=== PATIENT | female | born 1945 | race Caucasian/White ===

== ENCOUNTER 2017-03-15 00:29 | Observation (INO) | payer OTHER, MEDICAID ==
[~2017-03-15 00:29] MED LIST: ACETAMINOPHEN 325 MG TAB PO PRN; ATOR40TA16 PO; BISACODYL 10 MG SUPP RECTAL PRN; BUSP15TA PO; DICY20TA10 PO; FOSA70TA PO; HYDR-3580 PO; JANU50TA8 PO; LACTULOSE SYRUP 20 GM/30 ML CUP PO PRN; LEXA20TA PO; LISI-519 PO; MAGNESIUM HYDROXIDE SUSP 30 ML CUP PO PRN; NALOXONE HCL 0.4 MG/ML AMP IV PUSH PRN; OMEP40CA2 PO; ONDANSETRON HCL 4 MG/2 ML VIAL IVP PRN; SENNOSIDES 8.6 MG TAB PO PRN; SODIUM CHLORIDE 0.9% FLUSH 10 ML FLUSH IV FLUSH PRN; TRAZ300T2 PO; ZYPR10TA PO
[2017-03-15] MEDS: HEPARIN SODIUM - SQ 10,000 UNITS/ML VIAL SQ SCH ×2 (01:20→11:56)
[2017-03-15] MEDS: SODIUM CHLOR 0.9% 1000 ML INJ 1,000 ML IV SCH ×2 (01:22→13:48)
[2017-03-15] MEDS ORDERED: GLUCAGON 1 MG/ML VIAL OTHER PRN (01:45)
[2017-03-15] MEDS ORDERED: DEXTROSE 50% IN WATER 50 ML VIAL(D50) IV PUSH PRN (01:45)
[2017-03-15 02:38] VITALS: BP 128/68; PULSE 68; RESP 18; TEMP 98; O2SAT 98
[2017-03-15] MEDS ORDERED: DICYCLOMINE HCL 20 MG TAB PO PRN ×2 (04:00→04:15)
[2017-03-15] MEDS ORDERED: NICOTINE 4 MG/GUM CHEW PRN (04:30)
--- NOTE | 2017-03-15 04:36 | HHI.HP ---
[facility] Service [facility] Hospital[facility] Primary Care Physician Non-Staff Admission Diagnosis Diagnoses: (1) Abdominal wall hernia at previous stoma site Diagnosis: Principal Chief Complaint: Left lower quadrant abdominal pain with foul-smelling stool. Travel History International Travel<30 Days: No Contact w/Intl Traveler <30 Da: No Traveled to Known Affected Are: No History of Present Illness Ms. Copeland is 71 years old, with history inclusive of diverticulitis requiring colostomy, abdominal hernia, diabetes and high blood pressure. Ms. Copeland reported that she had diverticulitis 6 years ago requiring bowel resection surgery with subsequent colostomy. She reported having a abdominal hernia that is unable to be operated on until "they reversed my colostomy". Patient reported that she was been having abdominal pain off and on for several weeks. This morning, she awoke with "the worst pain I have had". She stated she tried to endure the pain (described as a deep ache and sharp) as best as she could and could not get relief. She also reported her stool started smelling "foul" and was more loose than usual. She denied recent use of antibiotics. As she was feeling worse she went to [facility] in [place] for evaluation and management of her condition. Imaging of the abdomen indicated the presence of left lower quadrant herniation of small bowel through ostomy defect in abdominal wall with some associated edema or inflammation changes and overlying skin thickening. Negative for small bowel obstruction or free air. She was subsequently transported to [facility] for management of her condition. At time of interview, she reported continued abdominal pain, foul-smelling loose stool, and decreased appetite. She denied fever, body aches, chest pain, shortness of breath, difficulty ambulating, nausea, and vomiting. Review of Systems Constitutional: COMPLAINS OF: Change in appetite, DENIES: Fever, Weight loss Endocrine: DENIES: Polydipsia, Polyphagia Eyes: DENIES: Blurred vision, Diplopia Ears, nose, mouth, throat: COMPLAINS OF: Hearing loss (over the past few years. ), DENIES: Vertigo, Throat pain Respiratory: COMPLAINS OF: Shortness of breath (reported to be in frequent and related to her COPD.), DENIES: Cough, Wheezing Cardiovascular: DENIES: Chest pain, Palpitations, Dyspnea on Exertion Gastrointestinal: COMPLAINS OF: Abdominal pain, Diarrhea (1 day onset and foul- smelling.), DENIES: Constipation, Vomiting Genitourinary: DENIES: Hematuria, Dysuria Psychiatric: COMPLAINS OF: Depression (controlled with medication.), DENIES: Anxiety Except as stated in HPI: all other systems reviewed are Neg Past Family Social History Past Medical History Arthritis Anxiety Depression Coronary artery disease/CABG/hypertension Chronic obstructive pulmonary disease Hyperlipidemia Diabetes (on Glucophage) Diverticulitis GERD Past Surgical History Bowel resection with colostomy Cholecystectomy CABG (2) Right breast lumpectomy Reported Medications Reported Meds & Active Scripts Active Reported Hydrocodone-Acetaminophen 7.5-325 mg Tab 1 Tab PO Q6H PRN Fosamax (Alendronate Sodium) 70 Mg Tab 70 Mg PO Q7D Dicyclomine (Dicyclomine HCl) 20 Mg Tab 325 Mg PO DAILY PRN Lisinopril 5 Mg Tab 5 Mg PO DAILY Zyprexa (Olanzapine) 10 Mg Tab 10 Mg PO DAILY Atorvastatin (Atorvastatin Calcium) 40 Mg Tab 40 Mg PO HS Trazodone (Trazodone HCl) 300 Mg Tab 300 Mg PO HS Omeprazole 40 Mg Cap 40 Mg PO DAILY Lexapro (Escitalopram Oxalate) 20 Mg Tab 30 Mg PO DAILY Buspirone (Buspirone HCl) 15 Mg Tab 15 Mg PO DAILY Janumet (Sitagliptin-Metformin) 50-1,000 Mg Tab 1 Tab PO BID Allergies: Coded Allergies: quetiapine (Verified Allergy, Severe, Hallucinations, 01/14/17) penicillin G (Verified Allergy, Unknown, Rash, 01/14/17) venlafaxine (Verified Allergy, Unknown, Irritability/Anxiety, 01/14/17) Active Ordered Medications Current Medications Medications (Trade) Dose Ordered Sig/Porfirio Route Start Time Stop Time Status Last Admin Sodium Chloride 1,000 ml @ 75 mls/hr [id number] IV 03/14/17 22:32 03/15/17 01:22 (NS Flush) 2 ml UNSCH PRN IV FLUSH 03/14/17 22:45 (NS Flush) 2 ml BID IV FLUSH 03/15/17 09:00 (Tylenol) 650 mg Q4H PRN PO 03/14/17 22:45 (Zofran Inj) 4 mg Q4H PRN IVP 03/14/17 22:45 (Heparin Inj) 5,000 units Q12H SQ 03/15/17 00:00 03/15/17 01:20 (Narcan Inj) 0.4 mg UNSCH PRN IV PUSH 03/14/17 22:45 (Jania-Colace) 1 tab BID PO 03/15/17 09:00 (Milk Of Magnesia Liq) 30 ml Q12H PRN PO 03/14/17 22:45 (Senokot) 17.2 mg Q12H PRN PO 03/14/17 22:45 (Dulcolax Supp) 10 mg DAILY PRN RECTAL 03/14/17 22:45 (Lactulose Liq) 30 ml DAILY PRN PO 03/14/17 22:45 (D50w (Vial) Inj) 50 ml UNSCH PRN IV PUSH 03/15/17 01:45 (Glucagon Inj) 1 mg UNSCH PRN OTHER 03/15/17 01:45 (NovoLOG SUPPLEMENTAL SCALE) 1 ACHS SLIDING SCALE SQ 03/15/17 08:00 (Flagyl) 500 mg Q8HR PO 03/15/17 06:00 Levofloxacin/ Dextrose 100 ml @ 100 mls/hr Q24H IV 03/15/17 21:00 (Lipitor) 40 mg HS PO 03/15/17 21:00 (Buspar) 15 mg DAILY PO 03/15/17 09:00 (Bentyl) 325 mg DAILY PRN PO 03/15/17 04:00 UNV (Lexapro) 30 mg DAILY PO 03/15/17 09:00 (Prinivil) 5 mg DAILY PO 03/15/17 09:00 (ZyPREXA) 10 mg DAILY PO 03/15/17 09:00 (Desyrel) 300 mg HS PO 03/15/17 21:00 (Protonix) 40 mg DAILY PO 03/15/17 09:00 (Glucophage) 1,000 mg BID PO 03/15/17 09:00 Family History Family history not reported/disclose by patient at visit. Social History Patient denied use of alcohol or illicit/recreational drugs. Patient reported smoking 1.5 packs of cigarettes per day; length of use was not disclosed. Physical Exam Vital Signs Vital Signs Date Time Temp Pulse Resp B/P (MAP) Pulse Ox O2 Delivery O2 Flow Rate FiO2 03/15/17 02:38 98.0 68 18 128/68 (88) 98 Physical Exam GENERAL: This is a well-nourished, well-developed female,, laying in bed, in no apparent distress. SKIN: No rashes, ecchymoses or lesions. Cool and dry. HEAD: Atraumatic. Normocephalic. EYES: Pupils equal round and reactive. Extraocular motions intact. No scleral icterus. No injection or drainage. ENT: Nose without bleeding or purulent drainage. Airway patent. NECK: Trachea midline. No lymphadenopathy. Supple and nontender. CARDIOVASCULAR: Regular rate and rhythm without murmurs, gallops, or rubs. RESPIRATORY: Clear to auscultation. Breath sounds equal bilaterally. No rales, or rhonchi. Diffuse wheezing noted. GASTROINTESTINAL: Abdomen soft, non-tender, nondistended. No hepato- splenomegaly or guarding. Colostomy noted in left lower quadrant; stoma pink, no stool noted. MUSCULOSKELETAL: Extremities without clubbing, cyanosis, or edema. NEUROLOGICAL: Awake and alert. Cranial nerves II through XII intact. Motor and sensory grossly within normal limits. Five out of 5 muscle strength in all muscle groups. Speech was clear and fluent. Laboratory Laboratory Tests Test 03/14/17 19:25 03/14/17 19:44 03/14/17 19:45 White Blood Count 11.0 TH/MM3 Red Blood Count 3.68 MIL/MM3 Hemoglobin 11.3 GM/DL Hematocrit 34.2 % Mean Corpuscular Volume 92.9 FL Mean Corpuscular Hemoglobin 30.7 PG Mean Corpuscular Hemoglobin Concent 33.0 % Red Cell Distribution Width 12.9 % Platelet Count 203 TH/MM3 Mean Platelet Volume 10.8 FL Immature Granulocyte % (Auto) 0.3 % Neutrophils (%) (Auto) 67.2 % Lymphocytes (%) (Auto) 26.3 % Monocytes (%) (Auto) 4.4 % Eosinophils (%) (Auto) 1.4 % Basophils (%) (Auto) 0.4 % Immature Granulocyte # (Auto) 0.0 TH/MM3 Neutrophils # (Auto) 7.4 TH/MM3 Lymphocytes # (Auto) 2.9 TH/MM3 Monocytes # (Auto) 0.5 TH/MM3 Eosinophils # (Auto) 0.2 TH/MM3 Basophils # (Auto) 0.0 TH/MM3 CBC Comment DIFF FINAL Differential Comment Lactic Acid Level 2.1 mmol/L Urine Color YELLOW Urine Turbidity CLEAR Urine pH 5.5 Urine Specific [place] LESS/EQUAL 1.005 Urine Protein NEG mg/dL Urine Glucose (UA) NEG mg/dL Urine Ketones NEG mg/dL Urine Occult Blood TRACE Urine Nitrite NEG Urine Bilirubin NEG Urine Urobilinogen 0.2 MG/DL Urine Leukocyte Esterase TRACE Urine RBC 0-3 /hpf Urine WBC 3-5 /hpf Urine Squamous Epithelial Cells 0-5 /hpf Urine Bacteria MOD /hpf Urine Mucus RARE /lpf Microscopic Urinalysis Comment CULTURE INDICATED Blood Urea Nitrogen 14 MG/DL Creatinine 1.00 MG/DL Random Glucose 115 MG/DL Total Protein 6.1 GM/DL Albumin 3.0 GM/DL Calcium Level 8.7 MG/DL Alkaline Phosphatase 103 U/L Aspartate Amino Transf (AST/SGOT) 20 U/L Alanine Aminotransferase (ALT/SGPT) 33 U/L Total Bilirubin 0.2 MG/DL Sodium Level 140 MEQ/L Potassium Level 4.2 MEQ/L Chloride Level 109 MEQ/L Carbon Dioxide Level 22.0 MEQ/L Anion Gap 9 MEQ/L Estimat Glomerular Filtration Rate 55 ML/MIN Lipase 196 U/L Imaging FINDINGS: There is a left lower quadrant herniation of small bowel through an ostomy defect in the lower anterior abdominal wall. There is no associated obstruction. There is some edema or inflammatory change around the herniated bowel loops. There is overlying skin thickening. Lung bases are clear. No acute findings in the liver, spleen, adrenals, kidneys or pancreas. Prior cholecystectomy. No free fluid or free air. CONCLUSION: 1. Left lower quadrant herniation of small bowel through an ostomy defect in the abdominal wall with some associated edema or inflammatory changes and overlying skin thickening. No bowel obstruction or free air. Caprini VTE Risk Assessment Caprini VTE Risk Assessment: Mod/High Risk (score >= 2) Caprini Risk Assessment Model Point Value = 1 Point Value = 2 Point Value = 3 Point Value = 5 Age 41-60 Minor surgery BMI > 25 kg/m2 Swollen legs Varicose veins or History of unexplained or recurrent spontaneous Oral contraceptives or hormone replacement Sepsis (< 1 month) Serious lung disease, including pneumonia (< 1 month) Abnormal pulmonary function Acute myocardial infarction Congestive heart failure (< 1 month) History of inflammatory bowel disease Medical patient at bed rest Age 61-74 Arthroscopic surgery Major open surgery (> 45 min) Laparoscopic surgery (> 45 min) Malignancy Confined to bed (> 72 hours) Immobilizing plaster cast Central venous access Age >= 75 History of VTE Family history of VTE Factor V Leiden Prothrombin [id number] Lupus anticoagulant Anticardiolipin antibodies Elevated serum homocysteine Heparin-induced thrombocytopenia Other congenital or acquired thrombophilia Stroke (< 1 month) Elective arthroplasty Hip, pelvis, or leg fracture Acute spinal cord injury (< 1 month) Prophylaxis Regimen Total Risk Factor Score Risk Level Prophylaxis Regimen 0-1 Low Early ambulation 2 Moderate Order ONE of the following: *Sequential Compression Device (SCD) *Heparin 5000 units SQ BID 3-4 Higher Order ONE of the following medications: *Heparin 5000 units SQ TID *Enoxaparin/Lovenox 40 mg SQ daily (WT < 150 kg, CrCl > 30 mL/min) *Enoxaparin/Lovenox 30 mg SQ daily (WT < 150 kg, CrCl > 10-29 mL/min) *Enoxaparin/Lovenox 30 mg SQ BID (WT < 150 kg, CrCl > 30 mL/min) AND/OR *Sequential Compression Device (SCD) 5 or more Highest Order ONE of the following medications: *Heparin 5000 units SQ TID (Preferred with Epidurals) *Enoxaparin/Lovenox 40 mg SQ daily (WT < 150 kg, CrCl > 30 mL/min) *Enoxaparin/Lovenox 30 mg SQ daily (WT < 150 kg, CrCl > 10-29 mL/min) *Enoxaparin/Lovenox 30 mg SQ BID (WT < 150 kg, CrCl > 30 mL/min) AND *Sequential Compression Device (SCD) Assessment and Plan Assessment and Plan Ms. Copeland is 71 years old, with history inclusive of diverticulitis requiring colostomy, abdominal hernia, diabetes and high blood pressure. Ms. Copeland reported that she had diverticulitis 6 years ago requiring bowel resection surgery with subsequent colostomy. She reported having a abdominal hernia that is unable to be operated on until "they reversed my colostomy". Patient reported that she was been having abdominal pain off and on for several weeks. This morning, she awoke with "the worst pain I have had". She stated she tried to endure the pain (described as a deep ache and sharp) as best as she could and could not get relief. She also reported her stool started smelling "foul" and was more loose than usual. She denied recent use of antibiotics. As she was feeling worse she went to [facility] in [place] for evaluation and management of her condition. Imaging of the abdomen indicated the presence of left lower quadrant herniation of small bowel through ostomy defect in abdominal wall with some associated edema or inflammation changes and overlying skin thickening. Negative for small bowel obstruction or free air. She was subsequently transported to [facility] for management of her condition. Abdominal pain Foul-smelling stool -Admit for observation -Pain management -Gen. surgery consult -C. difficile testing -Empiric antibiotics initiated; Flagyl 500 mg by mouth every 8 hours. Levofloxacin 500 mg IV every 24 hours -Colostomy care Depression Anxiety -Trazodone 300 mg daily at bedtime -Lexapro 30 mg daily -Zyprexa 10 mg daily -BuSpar 15 mg daily Diabetes -Fingersticks every before meals and at bedtime -Sliding scale insulin Hypertension -Lisinopril 5 mg daily Nicotine addiction -Nicotine gum ordered Diet -Nothing by mouth upon admission. Code Status Full code Discussed Condition With Patient, RN at bedside, and Dr. Carole Sorensen,Shoaib DARBY Mar 15, 2017 04:36
[2017-03-15] MEDS: metroNIDAZOLE 500 MG TAB PO SCH ×3 (07:58→22:16)
[2017-03-15] MEDS: INSULIN ASPART SUPPLEMENTAL SCALE SQ SCH ×4 (08:00→21:00)
[2017-03-15 08:29] VITALS: BP 150/72; PULSE 55; RESP 20; TEMP 97.5; O2SAT 91
--- NOTE | 2017-03-15 08:46 | HHI.PR ---
Subjective Remarks Follow up for abdominal pain, loose stool. The patient reports her abdominal pain has subsided. She reports continued loose nonbloody stools. Denies any fevers/chills or nausea/vomiting. Her colostomy was done by Dr. Gomez in [place] 6 years ago however she does not follow up with him anymore. She states eventually they planned on reversing her colostomy. She has no other medical complaints to report at this time. Objective Vitals Vital Signs Date Time Temp Pulse Resp B/P (MAP) Pulse Ox O2 Delivery O2 Flow Rate FiO2 03/15/17 02:38 98.0 68 18 128/68 (88) 98 Objective Remarks GENERAL: Well-nourished, well-developed pleasant female patient in [facility]. SKIN: Warm and dry. No rash. HEENT: Normocephalic. Atraumatic.Pupils equal and round. Mucous membranes pink and moist. CARDIOVASCULAR: Regular rate and rhythm. S1, S2 noted. No murmur appreciated. RESPIRATORY: No accessory muscle use. Clear to auscultation. Breath sounds equal bilaterally. GASTROINTESTINAL: Abdomen soft, non-tender, nondistended. Normoactive bowel sounds x4. Colostomy in place, stoma pink; minimal brown liquid stool noted. MUSCULOSKELETAL: No obvious deformities. Extremities without clubbing, cyanosis , or edema. NEUROLOGICAL: Awake and alert. No obvious cranial nerve deficits. Motor grossly within normal limits. Normal speech. PSYCHIATRIC: Appropriate mood and affect; insight and judgment normal. Medications and IVs Current Medications Medications (Trade) Dose Ordered Sig/Porfirio Route Start Time Stop Time Status Last Admin Sodium Chloride 1,000 ml @ 75 mls/hr [id number] IV 03/14/17 22:32 03/15/17 01:22 (NS Flush) 2 ml UNSCH PRN IV FLUSH 03/14/17 22:45 (NS Flush) 2 ml BID IV FLUSH 03/15/17 09:00 (Tylenol) 650 mg Q4H PRN PO 03/14/17 22:45 (Zofran Inj) 4 mg Q4H PRN IVP 03/14/17 22:45 (Heparin Inj) 5,000 units Q12H SQ 03/15/17 00:00 03/15/17 01:20 (Narcan Inj) 0.4 mg UNSCH PRN IV PUSH 03/14/17 22:45 (Jania-Colace) 1 tab BID PO 03/15/17 09:00 (Milk Of Magnesia Liq) 30 ml Q12H PRN PO 03/14/17 22:45 (Senokot) 17.2 mg Q12H PRN PO 03/14/17 22:45 (Dulcolax Supp) 10 mg DAILY PRN RECTAL 03/14/17 22:45 (Lactulose Liq) 30 ml DAILY PRN PO 03/14/17 22:45 (D50w (Vial) Inj) 50 ml UNSCH PRN IV PUSH 03/15/17 01:45 (Glucagon Inj) 1 mg UNSCH PRN OTHER 03/15/17 01:45 (NovoLOG SUPPLEMENTAL SCALE) 1 ACHS SLIDING SCALE SQ 03/15/17 08:00 (Flagyl) 500 mg Q8HR PO 03/15/17 06:00 03/15/17 07:58 Levofloxacin/ Dextrose 100 ml @ 100 mls/hr Q24H IV 03/15/17 21:00 (Lipitor) 40 mg HS PO 03/15/17 21:00 (Buspar) 15 mg DAILY PO 03/15/17 09:00 (Lexapro) 30 mg DAILY PO 03/15/17 09:00 (Prinivil) 5 mg DAILY PO 03/15/17 09:00 (ZyPREXA) 10 mg DAILY PO 03/15/17 09:00 (Desyrel) 300 mg HS PO 03/15/17 21:00 (Protonix) 40 mg DAILY PO 03/15/17 09:00 (Bentyl) 20 mg DAILY PRN PO 03/15/17 04:15 (Nicotine Gum) 4 mg Q1H PRN CHEW 03/15/17 04:30 A/P Problem List: (1) Abdominal wall hernia at previous stoma site ICD Code: K43.9 - Ventral hernia without obstruction or gangrene Status: Acute Assessment and Plan 71-year-old female with hx of diverticulitis w/colostomy, abdominal hernia, diabetes and hypertension; presents with abdominal pain, loose stools. Transferred from [facility] in [place]. Abdominal pain/Loose Stools: CT abd showed LLQ herniation of small bowel through an ostomy defect in the abdominal wall with associated edema or inflammatory changes and overlying skin thickening; no obstruction or free air. -Give supportive treatment with IVF hydration, antiemetics prn -Check C.difficile and stool cultures -Empiric antibiotics initiated with Flagyl/Levaquin -General surgery consulted -Kept NPO for now -Colostomy care Depression/Anxiety: chronic, stable -Continue home meds including Trazodone, Lexapro, Zyprexa, Buspar Diabetes Mellitus: chronic -hold patient's metformin for now -Monitor Accu-checks and cover with low dose SSI Hypertension -Lisinopril 5 mg daily -monitor BP, adjust antihypertensives as needed Tobacco Use: -counseled on cessation -Nicotine gum prn DVT Prophylaxis: Heparin sq Rasheeda Blackwood PA-C Mar 15, 2017 8:46 am
[2017-03-15] MEDS: PANTOPRAZOLE SOD 40 MG DELAYED RELEASE TAB PO SCH (09:00)
[2017-03-15] MEDS: OLANZapine 10 MG TAB PO SCH (09:00)
[2017-03-15] MEDS: SODIUM CHLORIDE 0.9% FLUSH 10 ML FLUSH IV FLUSH SCH ×2 (09:00→21:00)
[2017-03-15] MEDS ORDERED: metFORMIN HCL 500 MG TAB PO SCH (09:00)
[2017-03-15] MEDS: LISINOPRIL 5 MG TAB PO SCH (09:00)
[2017-03-15] MEDS: DOCUSATE SODIUM 50 MG/SENNA 8.6 MG TAB PO SCH ×2 (09:00→21:00)
[2017-03-15] MEDS: ESCITALOPRAM OXALATE 20 MG TAB PO SCH (09:00)
[2017-03-15] MEDS: busPIRone HCL 5 MG TAB PO SCH (09:00)
--- NOTE | 2017-03-15 10:33 | PD.CONS ---
cc: Temo Gastelum MD; Davey Polanco MD [facility] Service CONSULTATION NOTE FOR SURGICAL ATTENDING, DR. TEMO GASTELUM General Surgery Consult Requested By Franchesca DARBY Reason for Consult Left lower quadrant herniation of small bowel through ostomy defect Primary Care Physician Non-Staff History of Present Illness This is a 71-year-old female with a past medical history of arthritis, anxiety, depression, coronary artery disease, hypertension, hyperlipidemia, diabetes mellitus, diverticulitis and GERD. The patient developed 10 out of 10 pain yesterday at her colostomy site with copious amounts of watery diarrhea from her colostomy. The patient had a colostomy placed for acute diverticulitis by Dr. Gomez in [place] 6 years ago. The patient does not follow up with him anymore. The patient has been following with Dr. Polanco for sometime now for colostomy reversal. Per the patient, Dr. Polanco is requiring her to quit smoking before she has the operation. The patient's abdominal pain has now subsided and her stoma site appears normal. She is still having copious amounts of foul-smelling diarrhea. A General Surgery consultation has been requested. Review of Systems Constitutional: COMPLAINS OF: Fatigue, Change in appetite Endocrine: DENIES: Polydipsia, Polyuria, Polyphagia Eyes: DENIES: Diplopia Ears, nose, mouth, throat: DENIES: Hearing loss Respiratory: DENIES: Cough Cardiovascular: DENIES: Chest pain, Palpitations Gastrointestinal: COMPLAINS OF: Abdominal pain, Diarrhea Genitourinary: DENIES: Urinary frequency Musculoskeletal: DENIES: Muscle aches Integumentary: DENIES: Abnormal pigmentation Hematologic/lymphatic: DENIES: Bruising Immunologic/allergic: DENIES: Eczema Neurologic: DENIES: Abnormal gait, Headache Psychiatric: DENIES: Confusion, Mood changes, Depression Past Family Social History Past Medical History Arthritis Anxiety Depression Coronary artery disease Hypertension Hypercholesterolemia Diabetes mellitus GERD Past Surgical History CABG 2 Bowel resection for acute diverticulitis with colostomy placement Right breast lumpectomy Laparoscopic cholecystectomy Reported Medications Dicyclomine Atorvastatin Lisinopril Hydrocodone Lexapro Trazodone Zyprexa Buspirone Omeprazole Fosamax Janumet Allergies: Coded Allergies: quetiapine (Verified Allergy, Severe, Hallucinations, 01/14/17) penicillin G (Verified Allergy, Unknown, Rash, 01/14/17) venlafaxine (Verified Allergy, Unknown, Irritability/Anxiety, 01/14/17) Active Ordered Medications Current Medications Medications (Trade) Dose Ordered Sig/Porfirio Route Start Time Stop Time Status Last Admin Sodium Chloride 1,000 ml @ 75 mls/hr [id number] IV 03/14/17 22:32 03/15/17 01:22 (NS Flush) 2 ml UNSCH PRN IV FLUSH 03/14/17 22:45 (NS Flush) 2 ml BID IV FLUSH 03/15/17 09:00 (Tylenol) 650 mg Q4H PRN PO 03/14/17 22:45 (Zofran Inj) 4 mg Q4H PRN IVP 03/14/17 22:45 (Heparin Inj) 5,000 units Q12H SQ 03/15/17 00:00 03/15/17 01:20 (Narcan Inj) 0.4 mg UNSCH PRN IV PUSH 03/14/17 22:45 (Jania-Colace) 1 tab BID PO 03/15/17 09:00 (Milk Of Magnesia Liq) 30 ml Q12H PRN PO 03/14/17 22:45 (Senokot) 17.2 mg Q12H PRN PO 03/14/17 22:45 (Dulcolax Supp) 10 mg DAILY PRN RECTAL 03/14/17 22:45 (Lactulose Liq) 30 ml DAILY PRN PO 03/14/17 22:45 (D50w (Vial) Inj) 50 ml UNSCH PRN IV PUSH 03/15/17 01:45 (Glucagon Inj) 1 mg UNSCH PRN OTHER 03/15/17 01:45 (NovoLOG SUPPLEMENTAL SCALE) 1 ACHS SLIDING SCALE SQ 03/15/17 08:00 (Flagyl) 500 mg Q8HR PO 03/15/17 06:00 03/15/17 07:58 Levofloxacin/ Dextrose 100 ml @ 100 mls/hr Q24H IV 03/15/17 21:00 (Lipitor) 40 mg HS PO 03/15/17 21:00 (Buspar) 15 mg DAILY PO 03/15/17 09:00 03/15/17 09:00 (Lexapro) 30 mg DAILY PO 03/15/17 09:00 03/15/17 09:00 (Prinivil) 5 mg DAILY PO 03/15/17 09:00 03/15/17 09:00 (ZyPREXA) 10 mg DAILY PO 03/15/17 09:00 03/15/17 09:00 (Desyrel) 300 mg HS PO 03/15/17 21:00 (Protonix) 40 mg DAILY PO 03/15/17 09:00 03/15/17 09:00 (Bentyl) 20 mg DAILY PRN PO 03/15/17 04:15 (Nicotine Gum) 4 mg Q1H PRN CHEW 03/15/17 04:30 Family History Noncontributory Social History Positive tobacco use----1.5 ppd Denies EtOH use Denies illicit drug use Physical Exam Vital Signs Vital Signs Date Time Temp Pulse Resp B/P (MAP) Pulse Ox O2 Delivery O2 Flow Rate FiO2 03/15/17 08:29 97.5 55 20 150/72 (98) 91 03/15/17 02:38 98.0 68 18 128/68 (88) 98 Physical Exam GENERAL: 71-year-old female resting in bed in no acute distress. SKIN: Warm and dry. HEAD: Atraumatic. Normocephalic. EYES: Pupils equal and round. No scleral icterus. No injection or drainage. ENT: No nasal bleeding or discharge. Mucous membranes pink and moist. NECK: Trachea midline. . CARDIOVASCULAR: Regular rate and rhythm. RESPIRATORY: No accessory muscle use. Clear to auscultation. Breath sounds equal bilaterally. GASTROINTESTINAL: Abdomen soft, non-tender, nondistended. Colostomy stoma pink; + liquid stool in appliance. Parastomal hernia reducible nontender MUSCULOSKELETAL: Extremities without clubbing, cyanosis, or edema. No obvious deformities. NEUROLOGICAL: Awake and alert. No obvious cranial nerve deficits. Motor grossly within normal limits. Five out of 5 muscle strength in the arms and legs. Normal speech. PSYCHIATRIC: Appropriate mood and affect; insight and judgment normal. Laboratory Laboratory Tests Test 03/15/17 11:49 White Blood Count 7.4 TH/MM3 Red Blood Count 3.57 MIL/MM3 Hemoglobin 11.2 GM/DL Hematocrit 33.0 % Mean Corpuscular Volume 92.3 FL Mean Corpuscular Hemoglobin 31.4 PG Mean Corpuscular Hemoglobin Concent 34.0 % Red Cell Distribution Width 13.6 % Platelet Count 162 TH/MM3 Mean Platelet Volume 9.0 FL Neutrophils (%) (Auto) 67.2 % Lymphocytes (%) (Auto) 24.7 % Monocytes (%) (Auto) 5.2 % Eosinophils (%) (Auto) 2.1 % Basophils (%) (Auto) 0.8 % Neutrophils # (Auto) 5.0 TH/MM3 Lymphocytes # (Auto) 1.8 TH/MM3 Monocytes # (Auto) 0.4 TH/MM3 Eosinophils # (Auto) 0.2 TH/MM3 Basophils # (Auto) 0.1 TH/MM3 CBC Comment DIFF FINAL Differential Comment Blood Urea Nitrogen 8 MG/DL Creatinine 0.78 MG/DL Random Glucose 88 MG/DL Calcium Level 8.4 MG/DL Sodium Level 145 MEQ/L Potassium Level 4.3 MEQ/L Chloride Level 114 MEQ/L Carbon Dioxide Level 23.9 MEQ/L Anion Gap 7 MEQ/L Estimat Glomerular Filtration Rate 73 ML/MIN Imaging Allergies Coded Allergies Type Severity Reaction Last Updated Verified quetiapine Allergy Severe Hallucinations 01/14/17 Yes penicillin G Allergy Unknown Rash 01/14/17 Yes venlafaxine Allergy Unknown Irritability/Anxiety 01/14/17 Yes Laboratory Tests Test 03/15/17 11:49 White Blood Count 7.4 TH/MM3 Red Blood Count 3.57 MIL/MM3 Hemoglobin 11.2 GM/DL Hematocrit 33.0 % Mean Corpuscular Volume 92.3 FL Mean Corpuscular Hemoglobin 31.4 PG Mean Corpuscular Hemoglobin Concent 34.0 % Red Cell Distribution Width 13.6 % Platelet Count 162 TH/MM3 Mean Platelet Volume 9.0 FL Neutrophils (%) (Auto) 67.2 % Lymphocytes (%) (Auto) 24.7 % Monocytes (%) (Auto) 5.2 % Eosinophils (%) (Auto) 2.1 % Basophils (%) (Auto) 0.8 % Neutrophils # (Auto) 5.0 TH/MM3 Lymphocytes # (Auto) 1.8 TH/MM3 Monocytes # (Auto) 0.4 TH/MM3 Eosinophils # (Auto) 0.2 TH/MM3 Basophils # (Auto) 0.1 TH/MM3 CBC Comment DIFF FINAL Differential Comment Blood Urea Nitrogen 8 MG/DL Creatinine 0.78 MG/DL Random Glucose 88 MG/DL Calcium Level 8.4 MG/DL Sodium Level 145 MEQ/L Potassium Level 4.3 MEQ/L Chloride Level 114 MEQ/L Carbon Dioxide Level 23.9 MEQ/L Anion Gap 7 MEQ/L Estimat Glomerular Filtration Rate 73 ML/MIN Orders Procedure Category Date Status Time Place In Observation ADMITTING 03/14/17 Transmitted Vital Signs (Adult) [facility] 03/14/17 In Process 22:32 Activity Oob Ad Bryanna [facility] 03/14/17 In Process 22:32 Diet Npo DIET 03/15/17 Complete Breakfast Sodium Chlor 0.9% MED 03/14/17 In Process 1000 Ml Inj (Ns 1000 M 22:32 Sodium Chloride 0.9% MED 03/14/17 In Process Flush (Ns Flush) 22:45 Sodium Chloride 0.9% MED 03/15/17 In Process Flush (Ns Flush) 09:00 Acetaminophen MED 03/14/17 In Process (Tylenol) 22:45 Ondansetron Inj MED 03/14/17 In Process (Zofran Inj) 22:45 Basic Metabolic Panel LAB 03/15/17 Complete (Bmp) 06:00 Complete Blood Count LAB 03/15/17 Complete With Diff 06:00 Naloxone Inj (Narcan MED 03/14/17 In Process Inj) 22:45 Docusate Sodium-Senna MED 03/15/17 In Process (Jania-Colace) 09:00 Magnesium Hydroxide MED 03/14/17 In Process Liq (Milk Of Magnesi 22:45 Sennosides (Senokot) MED 03/14/17 In Process 22:45 Bisacodyl Supp MED 03/14/17 In Process (Dulcolax Supp) 22:45 Lactulose Liq MED 03/14/17 In Process (Lactulose Liq) 22:45 Equip, Isolation Cart [facility] 03/15/17 Logged 00:34 Colostomy Kit 2 1/4" [facility] 03/15/17 Logged Moldable 00:34 Heparin Inj (Heparin MED 03/15/17 In Process Inj) 00:00 Colostomy Kit 2 3/4" [facility] 03/15/17 Logged Moldable 01:28 Bedside Glucose [facility] 03/15/17 In Process 01:36 Blood Glucose Goal [facility] 03/15/17 In Process (Criteria) 01:36 Hypoglycemia 70 Mg/Dl [facility] 03/15/17 In Process Or < 01:[address]: Cha [facility] 03/15/17 In Process 01:36 Dextrose 50% In Cait MED 03/15/17 In Process (Vial) Inj (D50w (Vi 01:45 Glucagon Inj MED 03/15/17 In Process (Glucagon Inj) 01:45 Insulin Aspart MED 03/15/17 In Process Supplemtl Scale 08:00 Metronidazole (Flagyl) MED 03/15/17 In Process 06:00 Levofloxacin 500 Mg MED 03/15/17 In Process Premix Inj (Levaquin 21:00 C Diff Toxin Pcr LAB 03/15/17 In Process 01:43 Consult General CONS 03/15/17 Transmitted Surgery (Hub Use Only)Inp Phy CONS 03/15/17 Transmitted Cons/Ref Atorvastatin (Lipitor) MED 03/15/17 In Process 21:00 Buspirone (Buspar) MED 03/15/17 In Process 09:00 Escitalopram (Lexapro) MED 03/15/17 In Process 09:00 Lisinopril (Prinivil) MED 03/15/17 In Process 09:00 Olanzapine (Zyprexa) MED 03/15/17 In Process 09:00 Trazodone (Desyrel) MED 03/15/17 In Process 21:00 Pantoprazole MED 03/15/17 In Process (Protonix) 09:00 Metformin (Glucophage) MED 03/15/17 Complete 09:00 Sitagliptin (Januvia) MED 03/15/17 Complete 09:00 Dicyclomine (Bentyl) MED 03/15/17 In Process 04:15 Nicotine Gum MED 03/15/17 In Process (Nicotine Gum) 04:30 Physician Name Changes ADMITTING 03/15/17 Transmitted Consult Olaf Nfs CONS 03/15/17 Transmitted Enteric Path (Stool) MYNOR 03/15/17 In Process 08:42 Specimen To Be AILIN 03/15/17 In Process Collected 08:42 (Hub Use Only)Inp Phy CONS 03/15/17 Transmitted Cons/Ref Diet Full Liquid DIET 03/15/17 Transmitted Dinner Vital Signs Date Time Temp Pulse Resp B/P (MAP) Pulse Ox O2 Delivery O2 Flow Rate FiO2 03/15/17 16:41 98.3 65 18 157/62 (93) 91 03/15/17 13:48 152/59 (90) 03/15/17 11:41 97.8 50 18 180/72 (108) 91 03/15/17 08:29 97.5 55 20 150/72 (98) 91 03/15/17 02:38 98.0 68 18 128/68 (88) 98 CT abd/pelvis--- left lower quadrant herniation of small bowel through an ostomy defect in the abdominal wall; no obstruction or free air Assessment and Plan Problem List: (1) Parastomal hernia ICD Codes: K43.5 - Parastomal hernia without obstruction or gangrene Status: Chronic (2) Dehydration ICD Codes: E86.0 - Dehydration Status: Acute (3) Urinary tract infection ICD Codes: N39.0 - Urinary tract infection, site not specified Status: Acute (4) Diarrhea in adult patient ICD Codes: R19.7 - Diarrhea, unspecified Status: Acute (5) Diarrhea of presumed infectious origin ICD Codes: A09 - Infectious gastroenteritis and colitis, unspecified Status: Acute (6) Colostomy hernia ICD Codes: K94.09 - Other complications of colostomy Assessment and Plan 71 year old female with LLQ hernia through ostomy; diarrhea -Check c-diff toxin -Full liquid diet -Continue non operative management for now -Would recommend follow up with Dr. Polanco once over this acute issue -Thank you for this consult Discussed Condition With Dr. Oriana Copeland Attending Statement CONSULTATION NOTE FOR SURGICAL ATTENDING, DR. TEMO GASTELUM Patient seen in my office over a year ago for parastomal hernia She wanted to have her colostomy reversed I referred her to the colorectal surgeons She tells me she has an appointment with Dr. Yonathan Sosa in a month or so No evidence of obstruction at this point Treat her UTI and dehydration during this admission I agree with above assessment and plan. The exam, history, and the medical decision-making described in the above note were completed with the assistance of the mid-level provider. I reviewed and agree with the findings presented. I attest that I had a [id number] encounter with the patient on the same day, and personally performed and documented my assessment and findings in the medical record. The following services were provided during this hospital visit: Chart data review, vital sign assessments/reviewing monitor data Review of consultations notes if present. Medication orders/review and/or management Ordering and/or reviewing lab tests Ordering and/or interpreting/reviewing x-rays and/or diagnostic studies Care of the patient and discussion of the patient with the care team Documentation time To help prompt me to consider important information that might be impacting today's encounter and assessment, information from prior notes written by myself or my colleagues may have been "brought forward/copy and pasted" into today's note. Problem Qualifiers (1) Parastomal hernia: Qualified Codes: K43.5 - Parastomal hernia without obstruction or gangrene Alisson Alejandre Mar 15, 2017 10:33 Temo Gastelum MD Mar 15, 2017 19:33
[2017-03-15 11:41] VITALS: BP 180/72; PULSE 50; RESP 18; TEMP 97.8; O2SAT 91
[2017-03-15 12:03] LABS: BASOPHIL # 0.1 TH/MM3 (0-0.2); BASOPHIL % 0.8 % (0.0-2.0); EOSINOPHIL # 0.2 TH/MM3 (0-0.4); EOSINOPHIL % 2.1 % (0.0-4.0); HEMO FLAGS DIFF FINAL; LYMPH % 24.7 % (9.0-44.0); LYMPHOCYTE # 1.8 TH/MM3 (1.0-4.8); MEAN CELL VOLUME 92.3 FL (80.0-100.0); MEAN CORPUSCULAR HEMOGLOBIN 31.4 PG (27.0-34.0); MONO % 5.2 % (0.0-8.0); NEUT % 67.2 % (16.0-70.0); PLATELET COUNT 162 TH/MM3 (150-450); RED BLOOD COUNT 3.57 MIL/MM3 (4.00-5.30); RED CELL DISTRIBUTION WIDTH 13.6 % (11.6-17.2); WHITE BLOOD COUNT 7.4 TH/MM3 (4.0-11.0)
[2017-03-15 12:34] LABS: BICARBONATE 23.9 MEQ/L (21.0-32.0); POTASSIUM 4.3 MEQ/L (3.5-5.1)
[2017-03-15 13:48] VITALS: BP 152/59
[2017-03-15 16:41] VITALS: BP 157/62; PULSE 65; RESP 18; TEMP 98.3; O2SAT 91
[2017-03-15] MEDS ORDERED: LEVOFLOXACIN 500 MG PREMIX INJ 100 ML IV SCH (21:00)
[2017-03-15] MEDS ORDERED: ATORVASTATIN 40 MG TAB PO SCH (21:00)
[2017-03-15] MEDS ORDERED: traZODone HCL 100 MG TAB PO SCH (21:00)
[2017-03-15 21:33] VITALS: BP 165/54; PULSE 48; RESP 18; TEMP 98.3; O2SAT 96
[2017-03-16] MEDS: HEPARIN SODIUM - SQ 10,000 UNITS/ML VIAL SQ SCH (00:07)
[2017-03-16 00:37] VITALS: BP 172/59; PULSE 51; RESP 18; TEMP 98.2; O2SAT 97
[2017-03-16] MEDS: SODIUM CHLOR 0.9% 1000 ML INJ 1,000 ML IV SCH (02:23)
[2017-03-16] MEDS: metroNIDAZOLE 500 MG TAB PO SCH (05:46)
[2017-03-16 05:50] VITALS: BP 122/52; PULSE 54; RESP 18; TEMP 98.4; O2SAT 96
[2017-03-16 07:58] VITALS: BP 154/62; PULSE 55; RESP 20; TEMP 98; O2SAT 93
[2017-03-16] MEDS: INSULIN ASPART SUPPLEMENTAL SCALE SQ SCH (08:00)
[2017-03-16] MEDS: PANTOPRAZOLE SOD 40 MG DELAYED RELEASE TAB PO SCH (08:43)
[2017-03-16] MEDS: OLANZapine 10 MG TAB PO SCH (08:43)
[2017-03-16] MEDS: busPIRone HCL 5 MG TAB PO SCH (08:43)
[2017-03-16] MEDS: DOCUSATE SODIUM 50 MG/SENNA 8.6 MG TAB PO SCH (08:43)
[2017-03-16] MEDS: ESCITALOPRAM OXALATE 20 MG TAB PO SCH (08:44)
[2017-03-16] MEDS: SODIUM CHLORIDE 0.9% FLUSH 10 ML FLUSH IV FLUSH SCH (08:44)
[2017-03-16] MEDS: LISINOPRIL 5 MG TAB PO SCH (08:44)
--- NOTE | 2017-03-16 10:14 | HHI.PR ---
Subjective Remarks Follow up for abdominal pain, loose stool. The patient reports feeling much better today. She tolerated her full liquid tray last night. She has had very minimal brown liquid stool output into colostomy. Denies any abdominal pain, nausea/vomiting. She wants to go home. She plans to follow up with Dr. Polanco as scheduled within the next month. Objective Vitals Vital Signs Date Time Temp Pulse Resp B/P (MAP) Pulse Ox O2 Delivery O2 Flow Rate FiO2 03/16/17 07:58 98.0 55 20 154/62 (92) 93 03/16/17 05:50 98.4 54 18 122/52 (75) 96 03/16/17 00:37 98.2 51 18 172/59 (96) 97 03/15/17 21:33 98.3 48 18 165/54 (91) 96 03/15/17 16:41 98.3 65 18 157/62 (93) 91 03/15/17 13:48 152/59 (90) 03/15/17 11:41 97.8 50 18 180/72 (108) 91 Result Diagram: 03/15/17 1149 03/15/17 1149 Objective Remarks GENERAL: Well-nourished, well-developed pleasant female patient in [facility]. SKIN: Warm and dry. No rash. HEENT: Normocephalic. Atraumatic.Pupils equal and round. Mucous membranes pink and moist. CARDIOVASCULAR: Regular rate and rhythm. S1, S2 noted. No murmur appreciated. RESPIRATORY: No accessory muscle use. Clear to auscultation. Breath sounds equal bilaterally. GASTROINTESTINAL: Abdomen soft, non-tender, nondistended. Normoactive bowel sounds x4. Colostomy in place, stoma pink; minimal brown liquid stool noted. MUSCULOSKELETAL: No obvious deformities. Extremities without clubbing, cyanosis , or edema. NEUROLOGICAL: Awake and alert. No obvious cranial nerve deficits. Motor grossly within normal limits. Normal speech. PSYCHIATRIC: Appropriate mood and affect; insight and judgment normal. Medications and IVs Current Medications Medications (Trade) Dose Ordered Sig/Porfirio Route Start Time Stop Time Status Last Admin Sodium Chloride 1,000 ml @ 75 mls/hr [id number] IV 03/14/17 22:32 03/16/17 02:23 (NS Flush) 2 ml UNSCH PRN IV FLUSH 03/14/17 22:45 (NS Flush) 2 ml BID IV FLUSH 03/15/17 09:00 (Tylenol) 650 mg Q4H PRN PO 03/14/17 22:45 (Zofran Inj) 4 mg Q4H PRN IVP 03/14/17 22:45 (Heparin Inj) 5,000 units Q12H SQ 03/15/17 00:00 03/16/17 00:07 (Narcan Inj) 0.4 mg UNSCH PRN IV PUSH 03/14/17 22:45 (Jania-Colace) 1 tab BID PO 03/15/17 09:00 (Milk Of Magnesia Liq) 30 ml Q12H PRN PO 03/14/17 22:45 (Senokot) 17.2 mg Q12H PRN PO 03/14/17 22:45 (Dulcolax Supp) 10 mg DAILY PRN RECTAL 03/14/17 22:45 (Lactulose Liq) 30 ml DAILY PRN PO 03/14/17 22:45 (D50w (Vial) Inj) 50 ml UNSCH PRN IV PUSH 03/15/17 01:45 (Glucagon Inj) 1 mg UNSCH PRN OTHER 03/15/17 01:45 (NovoLOG SUPPLEMENTAL SCALE) 1 ACHS SLIDING SCALE SQ 03/15/17 08:00 (Flagyl) 500 mg Q8HR PO 03/15/17 06:00 03/16/17 05:46 Levofloxacin/ Dextrose 100 ml @ 100 mls/hr Q24H IV 03/15/17 21:00 03/15/17 22:13 (Lipitor) 40 mg HS PO 03/15/17 21:00 03/15/17 22:14 (Buspar) 15 mg DAILY PO 03/15/17 09:00 03/16/17 08:43 (Lexapro) 30 mg DAILY PO 03/15/17 09:00 03/16/17 08:44 (Prinivil) 5 mg DAILY PO 03/15/17 09:00 03/16/17 08:44 (ZyPREXA) 10 mg DAILY PO 03/15/17 09:00 03/16/17 08:43 (Desyrel) 300 mg HS PO 03/15/17 21:00 03/15/17 22:13 (Protonix) 40 mg DAILY PO 03/15/17 09:00 03/16/17 08:43 (Bentyl) 20 mg DAILY PRN PO 03/15/17 04:15 (Nicotine Gum) 4 mg Q1H PRN CHEW 03/15/17 04:30 A/P Problem List: (1) Abdominal wall hernia at previous stoma site ICD Code: K43.9 - Ventral hernia without obstruction or gangrene Status: Acute Assessment and Plan 71-year-old female with hx of diverticulitis w/colostomy, abdominal hernia, diabetes and hypertension; presents with abdominal pain, loose stools. Transferred from [facility] in [place]. Abdominal pain/Loose Stools: CT abd showed LLQ herniation of small bowel through an ostomy defect in the abdominal wall with associated edema or inflammatory changes and overlying skin thickening; no obstruction or free air. -Give supportive treatment with IVF hydration, antiemetics prn -Check C.difficile and stool cultures -Empiric antibiotics initiated with Flagyl/Levaquin -General surgery consulted, recommends outpatient follow up with Dr. Polanco for colostomy reversal -Diet advanced to full liquid, patient tolerated well -Colostomy care -patient much improved, no further pains, plan to discharge if C.diff negative Depression/Anxiety: chronic, stable -Continue home meds including Trazodone, Lexapro, Zyprexa, Buspar Diabetes Mellitus: chronic -hold patient's metformin for now -Monitor Accu-checks and cover with low dose SSI Hypertension -Lisinopril 5 mg daily -monitor BP, adjust antihypertensives as needed Tobacco Use: -counseled on cessation -Nicotine gum prn DVT Prophylaxis: Heparin sq Discharge Planning 1010hrs: Will plan to discharge if C.diff negative. 1100hrs: C.difficile negative. Patient tolerated oral intake. Will discharge home. Discharge patient to home Condition on discharge: Stable Heart Healthy/Diabetic Diet as tolerated Ad Bryanna activity Rx written: none Follow-up with primary care physician in 2-3 [address] Polanco as scheduled Rasheeda Blackwood PA-C Mar 16, 2017 10:14
[2017-03-16] MEDS ORDERED: DICY20TA10 PO (10:17)
--- NOTE | 2017-03-16 10:18 | HHI.DCPOC ---
Discharge Care Plan Diagnosis: (1) Colostomy hernia (2) Diarrhea in adult patient (3) Dehydration Your Health Problems Are: Irregular Bowel Function Goals to Promote Your Health * To prevent worsening of your condition and complications * To maintain your health at the optimal level Directions to Meet Your Goals Take your medications as prescribed Follow your dietary instruction Follow activity as directed Keep your appointments as scheduled Take your immunizations and boosters as scheduled If your symptoms worsen call your PCP, if no PCP go to Urgent Care Center or Emergency Room Smoking is Dangerous to Your Health. Avoid second hand smoke Call the 24-hour hour crisis hotline for domestic abuse at Rasheeda Blackwood PA-C Mar 16, 2017 10:18 am
[2017-03-16 12:02] LABS: C. DIFF EPI 027 PRESUMPTIVE NEGATIVE (NEGATIVE)
== END 2017-03-16 13:38 | disposition home or self-care (01) ==
LOC: NEDDLT 00:29 → NEPFCDU 00:32
PROVIDERS: ADMIT Internal Medicine; ATTEND Internal Medicine
DX: K43.5 Parastomal hernia without obstruction or gangrene (principal); R19.7 Diarrhea, unspecified; N39.0 Urinary tract infection, site not specified; E86.0 Dehydration; I25.10 Atherosclerotic heart disease of native coronary artery without angina pectoris; I10 Essential (primary) hypertension; E11.9 Type 2 diabetes mellitus without complications; K21.9 Gastro-esophageal reflux disease without esophagitis; E78.00 Pure hypercholesterolemia, unspecified; Z93.3 Colostomy status; Z95.1 Presence of aortocoronary bypass graft
CPT/HCPCS: 74177; 80048; 80053; 81001; 82948; 83605; 83690; 85025; 87086; 87493; 87506; 96360; 96361; 96372; G0378; J1170; J1644; J1956; J2405; J7030; Q9963; Q9967; 96365; 96366; 96367; 96375; 96376